=== PATIENT | male | born 1980 | race Caucasian/White ===

== ENCOUNTER 2017-08-13 10:48 | Emergency (ER) | payer BC, OTHER ==
[~2017-08-13] VITALS: Ht 175.3 cm; Wt 90.7 kg
[2017-08-13 10:58] VITALS: BP 129/72
== END 2017-08-13 11:38 | disposition home or self-care (01) ==
LOC: ER 11:02
DX: S01.81XA Laceration without foreign body of other part of head, initial encounter (principal); J45.909 Unspecified asthma, uncomplicated; W22.8XXA Striking against or struck by other objects, initial encounter; Y93.89 Activity, other specified; Y92.89 Other specified places as the place of occurrence of the external cause; Y99.8 Other external cause status
CPT/HCPCS: A4606; A6402; Z7610